=== PATIENT | female | born 2000 | race Caucasian/White ===

== ENCOUNTER 2022-09-28 13:44 | Inpatient (IN) ==
[2022-09-28] MEDS ORDERED: Al Hydrox/Mg Hydrox/Simet LIQ 30 ML UDC PO PRN (16:32)
[2022-09-29 07:34] LABS: Cholesterol 125 mg/dL; HDL Cholesterol 39.6 mg/dL; LDL Cholesterol 70 mg/dL; Triglycerides 77 mg/dL
[2022-09-29 08:07] LABS: Anion Gap 8 mmol/L (2-11); Blood Urea Nitrogen 14 mg/dL (6-24); CO2 Carbon Dioxide 27 mmol/L (22-32); Calcium 8.8 mg/dL (8.6-10.3); Chloride 106 mmol/L (101-111); Glucose 100 mg/dL (70-100); Potassium 4.6 mmol/L (3.5-5.0); Sodium 141 mmol/L (135-145)
[2022-09-29 08:22] LABS: TSH Ultra Thyroid Stim Horm 1.42 mcIU/mL (0.34-5.60)
[2022-09-29 09:27] LABS: Hematocrit 37 % (35-47); Hemoglobin 12.4 g/dL (12.0-16.0); Mean Corpuscular HGB Conc 33 g/dL (31-36); Mean Corpuscular Hemoglobin 31 pg (27-31); Mean Corpuscular Volume 94 fL (80-97); Mean Platelet Volume 8.9 fL (7.4-10.4); Platelet Count 191 10^3/uL (150-450); Red Blood Count 3.98 10^6 /uL (3.70-4.87); Red Cell Distribution Width 14 % (10-15)
[2022-09-29 10:07] LABS: HCG Pregnancy < 0.60 mIU/mL
[2022-09-29] MEDS ORDERED: Nicotine GUM 4MG FRUIT FLAVOR PO ONE (20:38)
[2022-09-30] MEDS: Nicotine GUM 4MG FRUIT FLAVOR PO PRN (17:47)
[2022-10-01] MEDS: Nicotine GUM 4MG FRUIT FLAVOR PO PRN (12:59)
[2022-10-02 08:00] VITALS: BP 113/70
[2022-10-02] MEDS: Nicotine GUM 4MG FRUIT FLAVOR PO PRN (10:53)
== END 2022-10-02 13:53 | disposition home or self-care (01) | DRG 753 ==
LOC: EDBD → ED 13:44 → EDHOLD 16:32 → BSU 20:12
PROVIDERS: ADMIT Psychiatry & Neurology Psychiatry; ATTEND Psychiatry & Neurology Psychiatry